=== PATIENT | male | born 1970 | race Caucasian/White ===

== ENCOUNTER 2019-07-07 21:36 | Emergency (ER) | payer BC ==
[2019-07-07 21:40] VITALS: BP 141/82; PULSE 77; RESP 17; TEMP 98.7
[2019-07-07] MEDS ORDERED: LIDOCAINE 1% INJ 10MG/ML (20 ML MDV) SQ ONE (22:05)
[2019-07-07] MEDS ORDERED: DIPH,PERTUSS(ACELL),TET PED 0.5 ML SYRINGE IM ONE (22:06)
--- NOTE | 2019-07-07 22:08 | ED ---
General Adult HPI - General Chief complaint: Wound/Laceration Stated complaint: Facial Laceration Time Seen by Provider: 07/07/19 21:41 Source: patient Mode of arrival: ambulatory Limitations: no limitations - History of Present Illness Initial comments: Patient is a 49-year-old male presenting to the emergency department with a chief complaint of a laceration on his face. Patient reports he was moving a large piece of sheet metal when it slipped and lacerated the right side of his pain is anterior to the ear. Patient reports mild active bleeding but very minimal pain. Patient is not on blood thinners. Patient is unaware of his tetanus status. Patient reports incident occurred about one hour prior to ED arrival. Patient denies taking medication to alleviate the symptoms. - Related Data Allergies Allergy/AdvReac Type Severity Reaction Status Date / Time No Known Allergies Allergy Verified 07/07/19 21:39 Review of Systems ROS Statement: Those systems with pertinent positive or pertinent negative responses have been documented in the HPI. ROS Other: All systems not noted in ROS Statement are negative. Past Medical History Past Medical History: No Reported History History of Any Multi-Drug Resistant Organisms: None Reported Past Surgical History: No Surgical Hx Reported Past Psychological History: No Psychological Hx Reported Smoking Status: Never smoker Past Alcohol Use History: Occasional Past Drug Use History: None Reported General Exam Limitations: no limitations General appearance: alert, in no apparent distress Head exam: Present: atraumatic, normocephalic. Absent: normal inspection (2 cm laceration on the right side of face anterior to the ear.) Eye exam: Present: normal appearance Pupils: Present: normal accommodation ENT exam: Present: normal exam, mucous membranes moist, normal external ear exam Neck exam: Present: normal inspection, full ROM Respiratory exam: Present: normal lung sounds bilaterally Cardiovascular Exam: Present: regular rate, normal rhythm, normal heart sounds Extremities exam: Present: normal inspection, full ROM Back exam: Present: normal inspection, full ROM Neurological exam: Present: alert, oriented X3 Psychiatric exam: Present: normal affect, normal mood Skin exam: Present: warm, intact, normal color Course Vital Signs 07/07/19 21:37 Temperature 98.7 F Pulse Rate 77 Respiratory 17 Rate Blood Pressure 141/82 O2 Sat by Pulse 96 Oximetry Procedures - Laceration Laceration #1 Consent Obtained: verbal consent Indication: laceration Site: face Size (cm): 3 Description: flap Depth: simple, single layer Sedation/Analgesia: none Anesthetic Used: lidocaine 1% Anesthesia Technique: local infiltration Amount (mls): 5 Pre-repair: irrigated extensively Type of Sutures: nylon Size of Sutures: 4-0 Number of Sutures: 6 Patient Tolerated Procedure: well, no complications Medical Decision Making - Medical Decision Making Patient is a 49-year-old male presenting to the emergency department with chief complaint of laceration to the face. Laceration site was repaired with 6 sutures. Patient advised to return to emergency department in 5 days for suture removal. Patient advised on proper wound care instructions. Patient was given tetanus prophylaxis. Strict return parameters were thoroughly discussed with patient is understanding and agreeable. Case discussed physician. Disposition Clinical Impression: Laceration Disposition: HOME SELF-CARE Condition: Stable Instructions (If sedation given, give patient instructions): Care For Your Stitches (DC), Laceration (DC) Additional Instructions: Please return to emergency department in 5 days for suture removal. Please follow proper wound care structures. Is patient prescribed a controlled substance at d/c from ED?: No Referrals: Nonstaff,Physician [Primary Care Provider] - 1-2 days Time of Disposition: 22:49
== END 2019-07-07 22:55 | disposition home or self-care (01) ==
LOC: EC 21:36
DX: S01.81XA Laceration without foreign body of other part of head, initial encounter (principal); Z23 Encounter for immunization; W26.8XXA Contact with other sharp object(s), not elsewhere classified, initial encounter; Y93.89 Activity, other specified
CPT/HCPCS: 99282; 12013; 90471; J2001; 90700